=== PATIENT | female | born 1940 | race Caucasian/White ===

== ENCOUNTER 2016-11-30 06:37 | Day surgery (SDC) | payer MEDICARE ==
[~2016-11-30] VITALS: Ht 154.9 cm; Wt 60.9 kg
[2016-11-30] MEDS ORDERED: SODIUM CHLORIDE 0.9% 1,000 ML IV SCH (06:49)
[2016-11-30 07:02] VITALS: BP 132/105
[2016-11-30] MEDS ORDERED: DILT240C77 PO (07:26)
[2016-11-30] MEDS ORDERED: FURO20TA3 PO (07:26)
[2016-11-30] MEDS ORDERED: POTA10TA90 PO (07:26)
[2016-11-30] MEDS ORDERED: CHOL20003 PO (07:26)
[2016-11-30] MEDS ORDERED: ALPR-475 PO (07:26)
[2016-11-30] MEDS ORDERED: WARF2.5T73 PO (07:26)
[2016-11-30] MEDS ORDERED: AMIO200T42 PO (07:26)
[2016-11-30] MEDS ORDERED: VERAPAMIL 2.5 MG/ML, 2ML ONE (08:15)
[2016-11-30] MEDS ORDERED: LIDOCAINE 2%, 20ML ONE (08:15)
[2016-11-30] MEDS ORDERED: FENTANYL PF 100 MCG/2ML ONE (08:15)
[2016-11-30] MEDS ORDERED: MIDAZOLAM 1 MG/ML, 5ML ONE (08:16)
[2016-11-30] MEDS ORDERED: ISOPROTERENOL 0.2MG/ML, 5ML ONE (08:19)
== END 2016-11-30 13:57 | disposition home or self-care (01) ==
LOC: CACL 06:37
PROVIDERS: ATTEND Internal Medicine Cardiovascular Disease
DX: I48.3 Typical atrial flutter (principal); I10 Essential (primary) hypertension; Z87.891 Personal history of nicotine dependence; I48.0 Paroxysmal atrial fibrillation
CPT/HCPCS: 36415; 85610; 93613; 93621; 93653; C1730; C1731; C1766; C1894; C2630; J2250; J3010; J3490

== ENCOUNTER → 2020-02-27 | Outpatient (CLI) | payer MEDICARE ==
[~2020-02-27] MED LIST: ALPR0.5T7 PO; AMIO200T42 PO; CHOL2000 PO; DILT240C77 PO; FURO20TA3 PO; OMNIPAQUE 350 MG/ML, 150 ML BOTTLE ONE; POTA10TA6 PO; WARF2.5T32 PO
[2020-02-27 16:18] LABS: ANION GAP 5 mmol/L (5-15); CALCIUM 8.9 mg/dL (8.5-10.1); CHLORIDE 107 mmol/L (98-107); CREATININE 1.06 mg/dL (0.55-1.02)
[2020-02-27 16:22] LABS: BASOPHILS # (AUTO) 0.04 x10^3/uL (0-0.1); BASOPHILS % (AUTO) 1 % (0-1); EOSINOPHILS # (AUTO) 0.23 x10^3/uL (0-0.4); EOSINOPHILS % (AUTO) 3 % (1-7); LYMPHOCYTES # (AUTO) 1.66 x10^3/uL (1-3.4); LYMPHOCYTES % (AUTO) 24 % (22-44); MD NO; MEAN CORPUSCULAR HEMOGLOBIN 30.1 pg (27.0-34.8); MEAN CORPUSCULAR HGB CONC 32.6 g/dL (32.4-35.8); MEAN CORPUSCULAR VOLUME 92.2 fL (80-100); MEAN PLATELET VOLUME 7.9 fL (7.4-10.4); MONOCYTES # (AUTO) 0.35 x10^3/uL (0.2-0.8); MONOCYTES % (AUTO) 5 % (2-9); NEUTROPHILS # (AUTO) 4.77 x10^3/uL (1.8-6.8); NEUTROPHILS % (AUTO) 68 % (42-75); PLATELET COUNT 261 x10^3/uL (130-400); RED BLOOD COUNT 5.07 x10^6/uL (3.82-5.3); RED CELL DISTRIBUTION WIDTH 13.8 % (9.6-15.2)
== END | disposition home or self-care (01) ==
LOC: CFH 12:22
PROVIDERS: ATTEND Internal Medicine Cardiovascular Disease
DX: M41.85 Other forms of scoliosis, thoracolumbar region (principal); I51.7 Cardiomegaly; I48.0 Paroxysmal atrial fibrillation
CPT/HCPCS: 36415; 71046; 75572; 80048; 82565; 85025; Q9967

== ENCOUNTER 2020-03-13 05:58 | Observation (INO) | payer MEDICARE ==
[~2020-03-13] VITALS: Ht 156.2 cm; Wt 65.4 kg
[~2020-03-13 05:58] MED LIST changes: -OMNIPAQUE 350 MG/ML, 150 ML BOTTLE ONE
[2020-03-13] MEDS ORDERED: SODIUM CHLORIDE 0.9% 1,000 ML IV SCH ×2 (06:27→06:30)
[2020-03-13 06:28] VITALS: BP 189/93
[2020-03-13] MEDS ORDERED: METO25TA91 PO (06:42)
[2020-03-13] MEDS ORDERED: APIX5TAB PO (06:42)
[2020-03-13] MEDS ORDERED: FENTANYL PF 100 MCG/2ML ONE ×2 (07:45→11:48)
[2020-03-13] MEDS ORDERED: PHENYLEPHRINE 10 MG/ML ONE ×2 (07:50→08:43)
[2020-03-13] MEDS ORDERED: hydrALAzine 20 MG/ML, 1ML ONE ×2 (07:50→11:47)
[2020-03-13] MEDS ORDERED: LIDOCAINE-MPF 2% ,5ML ONE (07:51)
[2020-03-13] MEDS ORDERED: HEPARIN 1,000 UNITS/ML, 10ML ONE ×2 (07:51→09:27)
[2020-03-13] MEDS ORDERED: LIDOCAINE 2%, 20ML ONE (07:58)
[2020-03-13] MEDS ORDERED: FENTANYL PF 100 MCG/2ML IV PRN (08:00)
[2020-03-13] MEDS ORDERED: LABETALOL 5MG/ML, 20ML IV PRN (08:00)
[2020-03-13] MEDS ORDERED: OXYcodone 5 MG/5 ML ORAL.SOL UDC PO PRN (08:00)
[2020-03-13] MEDS ORDERED: ONDANSETRON 2MG/ML, 2ML IVPush PRN ×2 (08:00→17:00)
[2020-03-13] MEDS ORDERED: PROMETHAZINE 25 MG/ML, 1ML IVPush PRN (08:00)
[2020-03-13] MEDS ORDERED: MEPERIDINE/PF 25MG/0.5ML IVPush PRN (08:00)
[2020-03-13] MEDS ORDERED: ACETAMINOPHEN 325 MG TABLET PO PRN ×2 (08:00→17:00)
[2020-03-13] MEDS ORDERED: HYDROmorphone 1 MG/ML, 1ML INJ IVPush PRN (08:00)
[2020-03-13] MEDS ORDERED: SUGAMMADEX 200 MG/2 ML IVPush ONE (08:16)
[2020-03-13] MEDS ORDERED: SUCCINYLCHOLINE 20 MG/ML, 10ML ONE (08:43)
[2020-03-13] MEDS ORDERED: DEXAMETHASONE 4 MG/ML, 1ML ONE (08:43)
[2020-03-13] MEDS ORDERED: PROPOFOL 10 MG/ML, 20ML ONE ×2 (08:43→10:06)
[2020-03-13] MEDS ORDERED: ROCURONIUM 10MG/ML,5ML ONE (08:43)
[2020-03-13] MEDS ORDERED: ONDANSETRON 2MG/ML, 2ML ONE (08:43)
[2020-03-13] MEDS ORDERED: APIXABAN 5 MG TABLET PO SCH (12:00)
[2020-03-13] MEDS: EPHEDRINE 50 MG/ML, 1ML IVPush PRN ×2 (12:10→12:50)
[2020-03-13] MEDS ORDERED: EPHEDRINE 50 MG/ML, 1ML ONE (12:17)
[2020-03-13] MEDS ORDERED: APIXABAN 5 MG TABLET ONE (12:43)
[2020-03-13] MEDS: APIXABAN 5 MG TABLET PO SCH ×2 (12:45→21:29)
[2020-03-13 20:38] VITALS: BP 128/73
[2020-03-13] MEDS: COLCHICINE 0.6 MG CAPSULE PO SCH (21:00)
[2020-03-14 01:35] VITALS: BP 116/65
[2020-03-14 08:40] VITALS: BP 120/65
[2020-03-14] MEDS ORDERED: METOPROLOL SUCCINATE 25 MG TAB.ER.24H PO SCH (09:00)
[2020-03-14] MEDS ORDERED: FUROSEMIDE 20 MG TABLET PO SCH (09:00)
[2020-03-14] MEDS ORDERED: CHOLECALCIFEROL 1,000 UNIT TABLET PO SCH (09:00)
[2020-03-14] MEDS ORDERED: POTASSIUM CHLORIDE 20 MEQ TAB.ER.PRT PO SCH (09:00)
[2020-03-14] MEDS ORDERED: COLC0.6C3 PO (09:19)
[2020-03-14] MEDS ORDERED: ACET325T26 PO (09:19)
[2020-03-14] MEDS: APIXABAN 5 MG TABLET PO SCH (09:37)
[2020-03-14] MEDS: COLCHICINE 0.6 MG CAPSULE PO SCH (09:38)
== END 2020-03-14 12:17 | disposition home or self-care (01) ==
LOC: CACL 05:58 → ORIP 11:55 → 5SO 13:46 → DCLOUNGE 03-14 12:07
PROVIDERS: ADMIT Internal Medicine Cardiovascular Disease; ATTEND Internal Medicine Cardiovascular Disease
DX: Z03.818 Encounter for observation for suspected exposure to other biological agents ruled out (principal); I48.91 Unspecified atrial fibrillation; I48.4 Atypical atrial flutter; I10 Essential (primary) hypertension; Z79.01 Long term (current) use of anticoagulants; Z79.899 Other long term (current) drug therapy; Z87.891 Personal history of nicotine dependence
CPT/HCPCS: 36415; 85347; 87635; 93306; 93312; 93321; 93325; 93613; 93655; 93656; 93657; 93662; C1730; C1732; C1759; C1766; C1893; C1894; G0378; J0330; J0360; J1100; J1644; J2370; J2405; J2704; J3010; J3490

== ENCOUNTER 2020-12-05 11:55 | Emergency (ER) | payer MEDICARE ==
[~2020-12-05] VITALS: Ht 154.9 cm; Wt 63.6 kg
[~2020-12-05 11:55] MED LIST changes: +ACET325T26 PO; +APIX5TAB PO; +COLC0.6C3 PO; +METO25TA91 PO
[2020-12-05] MEDS ORDERED: ADENOSINE 6 MG/2 ML ONE (11:59)
--- NOTE | 2020-12-05 12:12 | NUR ---
PT CAME IN WITH HR OF 158, NO SOB, CP/. PT PUT IN GOWN WITH CONT REGISTRY RN, SPO2, BP Q 5 MIN, SIDE RAILS UP X2, CALL LIGHT IN REACH/. PT ON ZOOL PADS. NS TKO. SUCTION READY, ETCO2. PT ON 2 L NC/. MD HAYDEN BEDSIDE. 12 MG ADENOSINE GIVEN AT 1209.
[2020-12-05] MEDS ORDERED: PROPOFOL 10 MG/ML, 20ML ONE (12:18)
[2020-12-05] MEDS ORDERED: ADENOSINE 6 MG/2 ML IVPush ONE (12:30)
[2020-12-05] MEDS ORDERED: PLEASE ENTER HEIGHT AND WEIGHT MC SCH (12:30)
[2020-12-05] MEDS ORDERED: SODIUM CHLORIDE FLUSH 10ML SYR IVF ONE (12:30)
--- NOTE | 2020-12-05 12:36 | NUR ---
PT GIVEN 70 MG PROPOFOL BY MD HAYDEN, GIVEN 120J FOR ELECTROCARDIOVERSION. SEE PAPER CHARTING. CONSENT SIGNED. REPEAT EKG DONE.
[2020-12-05 12:42] LABS: ALBUMIN 3.7 g/dL (3.4-5.0); ANION GAP 6 mmol/L (5-15); CALCIUM 8.6 mg/dL (8.5-10.1); CHLORIDE 107 mmol/L (98-107); CREATININE 0.98 mg/dL (0.55-1.02)
--- NOTE | 2020-12-05 12:58 | NUR ---
REPORT FROM ALBERT. CONTINUE TO MONITOR PT. VSS. CALL LIGHT WITHIN REACH.
--- NOTE | 2020-12-05 13:30 | NUR ---
PT CALLING FOR RIDE. OXYGEN DISCONTINUED, CONTINUE TO MONITOR. VSS/UPDATED IN COMPUTER.
[2020-12-05 13:31] VITALS: BP 113/71
== END 2020-12-05 15:00 | disposition home or self-care (01) ==
LOC: ED 14:16
DX: I47.1 Supraventricular tachycardia (principal); I44.0 Atrioventricular block, first degree; I45.2 Bifascicular block
CPT/HCPCS: 36415; 80048; 82040; 92960; 93005; 96374; 99152; 99285; J0153